=== PATIENT | male | born 1955 | race Caucasian/White ===

== ENCOUNTER 2017-08-31 13:19 | Inpatient (IN) | payer BC, OTHER ==
[~2017-08-31] VITALS: Ht 167.6 cm; Wt 92.5 kg
[2017-08-31] VITALS (27 sets, daily range): BP systolic 58–118; BP diastolic 46–79
[~2017-08-31 13:19] MED LIST: AMLODIPINE BESYL5 MG PO; ASPIRIN ENTERI325 MG PO; ATORVASTATIN CA10 MG PO; BYSTOLIC10 MG PO; DIGOXIN125 MCG PO; GLIMEPIRIDE2 MG PO; LISINOPRIL10 MG PO; METFORMIN HCL500 MG PO; METOPROLOL SUCC50 MG PO; NEXIUM40 MG; XARELTO20 MG PO; ZETIA10 MG PO; invokana PO
[2017-08-31] MEDS ORDERED: ATROPINE SULFATE 1 MG/ML VIAL IV ONE (13:30)
[2017-08-31] MEDS ORDERED: GLUCAGON FOR INJ 1 MG VIAL ONE ×2 (13:33→13:34)
[2017-08-31] MEDS ORDERED: ATROPINE SULFATE 0.1 MG/ML 10ML SYR ONE (13:36)
[2017-08-31 13:37] LABS: BASOPHILS % 0.4 % (0.0-1.0); EOSINOPHILS # (AUTO) 0.2 (0.0-0.4); EOSINOPHILS % 1.9 % (0.0-6.0); HEMATOCRIT 45.9 % (38.2-49.6); LYMPHOCYTES # (AUTO) 3.5 (1.0-3.2); LYMPHOCYTES % 43.4 % (18.0-39.1); MEAN CORPUSCULAR HGB CONC 34.9 g/dL (31-35); MEAN CORPUSCULAR VOLUME 97.5 fL (81-99); MONOCYTES # (AUTO) 0.6 (0.2-0.8); MONOCYTES % 6.8 % (4.4-11.3); NEUTROPHILS # (AUTO) 3.8 (2.1-6.9); NEUTROPHILS % 47.4 % (38.7-80.0); PLATELET COUNT 204 x10e3/uL (140-360); RED BLOOD COUNT 4.71 x10e6/uL (4.3-5.7); RED CELL DISTRIBUTION WIDTH 12.9 % (11.7-14.4)
[2017-08-31 13:46] LABS: INR 1.13; PROTHROMBIN TIME 13.6 seconds (11.9-14.5)
[2017-08-31] MEDS ORDERED: ONDANSETRON HCL INJ 2 MG/ML VIAL ONE (13:46)
[2017-08-31 13:47] LABS: PARTIAL THROMBOPLASTIN TIME 26.8 seconds (23.8-35.5)
[2017-08-31 13:57] LABS: ALANINE AMINOTRANSFERASE 18 IU/L (0-55); ALBUMIN 3.9 g/dL (3.5-5.0); ALBUMIN/GLOBULIN RATIO 1.3 (0.8-2.0); ALKALINE PHOSPHATASE 76 IU/L (40-150); ANION GAP 14.2 mmol/L (8-16); BLOOD UREA NITROGEN 14 mg/dL (7-26); BUN/CREATININE RATIO 17 (6-25); CALCIUM 9.2 mg/dL (8.4-10.2); CARBON DIOXIDE 23 mmol/L (22-29); CHLORIDE 112 mmol/L (98-107); CREATINE KINASE 58 IU/L (30-200); CREATININE, SERUM 0.83 mg/dL (0.72-1.25); EST GLOMERULAR FILTRATION RATE > 60 ML/MIN (60-); GLUCOSE 98 mg/dL (74-118); POTASSIUM 4.2 mmol/L (3.5-5.1); SODIUM 145 mmol/L (136-145)
[2017-08-31] MEDS ORDERED: GLUCAGON FOR INJ 1 MG VIAL IV ONE (14:00)
[2017-08-31] MEDS ORDERED: ONDANSETRON HCL INJ 2 MG/ML VIAL IV ONE (14:30)
--- NOTE | 2017-08-31 14:30 | Diagnostic Imaging Report ---
EXAMINATION: CHEST SINGLE (PORTABLE) INDICATION: Dizziness. Shortness of breath. COMPARISON: None FINDINGS: TUBES and LINES: None. Implantable loop recorder projected on the lower left thorax. LUNGS: Mild bilateral pulmonary venous congestion. There is no evidence of pneumonia or pulmonary edema. PLEURA: No pleural effusion or pneumothorax. HEART AND MEDIASTINUM: The cardiac silhouette is mildly enlarged. Median sternotomy wires. Mild considerations arch. BONES AND SOFT TISSUES: No acute osseous lesion. Soft tissues are unremarkable. UPPER ABDOMEN: No free air under the diaphragm. IMPRESSION: Cord megaly and mild bilateral pulmonary venous congestion Signed by: Dr. Eulalio Sanchez M.D. on 08/31/2017 2:26 PM
[2017-08-31] MEDS ORDERED: FAMOTIDINE 20 MG TAB PO SCH ×2 (15:30→21:00)
[2017-08-31] MEDS ORDERED: SODIUM CHLORIDE FLUSH 10 ML SYR INJ PRN (15:30)
[2017-08-31] MEDS ORDERED: ONDANSETRON HCL INJ 2 MG/ML VIAL IV PRN (15:30)
--- OUTSIDE RECORDS SUMMARY | 2017-08-31 16:17 | XMS REPORT ---
Author Author [facility] Address Unknown Phone Unavailable Care Team Providers Care [employer] Bi Consultant Name Role Phone RENE CHOPRA Unavailable Unavailable Problems This patient has no known problems. Allergies, Adverse Reactions, Alerts This patient has no known allergies or adverse reactions. Medications This patient has no known medications. Results Test Description Test Time Test Comments Text Results Atomic Results Result Comments CHEST SINGLE (PORTABLE) [facility] [address] [address] Patient Name: HEAVEN IVAN MR #: [id number] : 1955 Age/Sex: 62/M Req #: [id number] Adm Physician: Ordered by: RENE CHOPRA MD Report # : [id number] Location: ER Room/Bed: Procedure: 0311 -[id number] DX/CHEST SINGLE (PORTABLE) Exam Date: 08/31/17 Exam Time: 1400 REPORT STATUS: Signed EXAMINATION: CHEST SINGLE ( PORTABLE) INDICATION: Dizziness. Shortness of breath. COMPARISON: None FINDINGS: TUBES and LINES: None. Implantable loop recorder projected on the lower left thorax. LUNGS: Mild bilateral pulmonary venous congestion. There is no evidence of pneumonia or pulmonary edema. PLEURA: No pleural effusion or pneumothorax. HEART AND MEDIASTINUM: The cardiac silhouette is mildly enlarged. Median sternotomy wires. Mild considerations arch. BONES AND SOFT TISSUES: No acute osseous lesion. Soft tissues are unremarkable. UPPER ABDOMEN: No free air under the diaphragm. IMPRESSION: Cord megaly and mild bilateral pulmonary venous congestion Signed by: Dr. Eulalio Mckeon M.D. on 2017 2:26 PM Dictated By: RYAN MCKEON MD, MD 25 Transcribed By: RON on 08/31/17 142 COPY TO: RENE CHOPRA MD
[2017-08-31] MEDS: SODIUM CHLORIDE 0.9% 1000ML 1,000 ML IV SCH (20:18)
[2017-08-31] MEDS ORDERED: ACETAMINOPHEN 325 MG TAB PO PRN (21:15)
[2017-08-31] MEDS ORDERED: DEXTROSE 50% SYRINGE 50 ML IV PRN (21:15)
--- NOTE | 2017-08-31 21:19 | Consultation ---
DATE OF CONSULTATION: August 31, 2017 REFERRING PHYSICIAN: Dr. eWrner REASON FOR CONSULT: Bradycardia. HISTORY OF PRESENT ILLNESS: This is a 62-year-old gentleman with history of coronary artery disease status post coronary bypass surgery, history of near syncope, reason why he had a loop recorder implanted, he came into the ER after feeling weak and dizzy. He was found bradycardic with heart rate in the 30s with frequent PVCs, ventricular bigeminy, patient states he has been on metoprolol and he stopped it about 5 days ago, and the bradycardia still persists. Patient denies any syncope, but he feels dizzy, having near syncope. No chest pain at the moment. REVIEW OF SYSTEMS: CONSTITUTIONAL: Progressive tiredness and weakness over the last 1 month. CARDIOVASCULAR: As per HPI. RESPIRATORY: Negative. GASTROINTESTINAL: Negative. GENITOURINARY: Negative. MUSCULOSKELETAL: Negative. EYES: Negative. ENT: Negative. ALLERGY/IMMUNOLOGY: Negative. PSYCHIATRY: Negative. PAST MEDICAL HISTORY: Coronary artery disease, hypertension. SURGICAL HISTORY: Coronary bypass surgery. FAMILY HISTORY: No premature coronary artery disease. SOCIAL HISTORY: No smoking, alcohol, or illicit drugs. PHYSICAL EXAMINATION: VITAL SIGNS: Blood pressure 110/60, pulse 40, respiration 20, O2 sat is 98%. GENERAL: In no acute distress. HEENT: Moist mucous membranes. No lesions. NECK: No JVD. CARDIOVASCULAR: Regular rhythm. RESPIRATORY: Clear to auscultation. GASTROINTESTINAL: Abdomen is soft, nontender. MUSCULOSKELETAL: 2+ distal pulses. NEUROLOGICAL: No focal deficit. SKIN: No lesions. PSYCHIATRY: Normal thought process. EKG: Sinus bradycardia with frequent PVCs, ventricular bigeminy. IMPRESSION: 1. Sinus node dysfunction with symptomatic bradycardia, lightheadedness, near syncope, no reversible causes persist despite holding beta blockers for about 5 days. 2. Frequent premature ventricular contractions. 3. History of coronary artery disease, status post bypass surgery. RECOMMENDATIONS: Discussed with the patient. He has indication for a pacemaker. Procedure was explained in detail with benefits and risks. He voices understanding and wishes to proceed. Will plan for a dual chamber pacemaker, will be awaiting results from echocardiogram regarding ejection fraction. Thank you for letting us participate in [facility]. Job#: [id number] DR MACARIO
--- NOTE | 2017-08-31 22:15 | History and Physical ---
CHIEF COMPLAINT: Severe dizziness. HPI: This is a 62-year-old male with the past medical history of coronary artery disease, coronary artery bypass graft, hypertension, hyperlipidemia, diabetes mellitus 2. Patient was having dizziness on Friday night. Patient did good after that. The patient had another dizziness spell severe this morning. He checked heart rate at home, was 30 and blood pressure was low, came to the emergency room. No chest pain, no shortness of breath, no cough, no leg pain, no leg swelling, no diarrhea, no constipation, no back ache, no burning urination. Patient had dizziness subsided after in the ER, the heart rate is better, but still low. No leg pain, no leg swelling. No hematuria, no melena. ALLERGIES: ALLERGIC TO PENICILLIN. PAST MEDICAL HISTORY 1. Hypertension. 2. Diabetes mellitus 2. 3. Hyperlipidemia. 4. Coronary artery disease. 5. Atrial fibrillation, status post ablation. PAST SURGICAL HISTORY: History of coronary artery bypass graft and ablation for AFib. SOCIAL HISTORY: Patient , lives with the . HABITS: Denies smoking, denies alcohol use, denies illicit drug use. MEDICATIONS: List attached. REVIEW OF SYSTEMS GENERAL . Denies fatigue, focal weakness. HEENT: No diplopia, no blurring of vision. CARDIOPULMONARY: No chest pain, no shortness of breath, no cough. ALIMENTARY SYSTEM: No nausea, no vomiting, no diarrhea, constipation. GENITOURINARY: No dysuria, no hematuria. MUSCULOSKELETAL: no joint pains. CENTRAL NERVOUS SYSTEM: No focal weakness, but has some dizziness. No seizures. PHYSICAL EXAMINATION GENERAL: A 62-year-old male, who is alert, oriented times 3. No gross distress. VITALS: Temperature 97.7, pulse 42, respiration 18, blood pressure 111/72. HEENT: Head atraumatic, normocephalic. Pupils bilaterally equally reactive to light. Extraocular muscles intact. NECK: Supple. No JVD, no carotid bruit. LUNGS: Clear to auscultation and percussion bilaterally. No added sounds. HEART: S1, S2. Regular rate and rhythm. No S3, S4. No murmur. ABDOMEN: Soft, nontender. No guarding, no rigidity. EXTREMITIES: No pedal edema. Peripheral pulses +1. SUBSCRIPTION CREW LEADER: Grossly nonfocal. Chest x-ray mild cardiomegaly and venous congestion. PT/PTT normal. CMP, sugar and all chemistry normal. BNP 179.8. CBC, white count 8.05, hemoglobin 16, hematocrit 45, and platelet 204,000. ASSESSMENT 1. Symptomatic bradycardia with heart rate as low as 40 with severe dizziness. 2. Hypotension secondary to bradycardia. 3. Hypertension. 4. Coronary artery disease, status post coronary artery bypass graft. 5. Diabetes mellitus. 6. Hyperlipidemia. PLAN: IV fluids at 75 mL per hour. IV dopamine p.r.n. Permanent pacemaker in a.m. Echocardiogram. Lab in the morning, BMP. Cardiology consult with Dr. Werner. EP consult for pacemaker. Pepcid 20 p.o. b.i.d. Hold metformin now. Sliding scale blood sugar a.c. and nightly with regular insulin. Case discussed with patient and of condition and prognosis. Job#: [id number] CQ
[2017-09-01] VITALS (74 sets, daily range): BP systolic 48–184; BP diastolic 31–176
[2017-09-01] MEDS ORDERED: DEXTROSE 50% SYRINGE 50 ML IV PRN
[2017-09-01] MEDS: SODIUM CHLORIDE 0.9% 1000ML 1,000 ML IV SCH ×2 (01:31→21:31)
[2017-09-01 02:04] LABS: CREATINE KINASE MB 0.7 ng/mL (0-5.0)
--- NOTE | 2017-09-01 05:39 | Consultation ---
DATE OF CONSULTATION: September 01, 2017 CARDIOLOGY CONSULTATION REASON FOR CONSULTATION: Presyncope. HISTORY OF PRESENT ILLNESS: Mr. Guzmán is a pleasant 62-year-old man with history of CAD, status post aortocoronary bypass surgery, prior implantable loop recorder placement for bradycardia, presently asymptomatic, who over the course of the weekend in spite of having beta arianna held for various days has noted persistent heart rate in the 30s and has started to complain of episodes of lightheadedness and dizziness. This worsened with physical exertion. PVCs and ventricular bigeminy have been also observed. He denies any chest pain or shortness of breath. Hypotension has been observed for which IV fluids have been initiated. The patient is admitted to ICU for further management, including as needed atropine, as needed dopamine use. ALLERGIES: PENICILLIN. PAST MEDICAL HISTORY: Hypertension, diabetes mellitus, hyperlipidemia, coronary artery disease, status post bypass, and AFib, status post ablation. SOCIAL HISTORY: . No smoking, alcohol or drugs. FAMILY HISTORY: Noncontributory. REVIEW OF SYSTEMS: A 12-system reviewed negative, except for as noted above. PHYSICAL EXAMINATION VITALS: Temperature 98.3, heart rate 38, respiratory rate 18, blood pressure 113/67, and O2 sat 100% on 2 L per minute nasal cannula. GENERAL: In no acute distress. Alert. NECK: No JVD. CHEST: Clear to auscultation. CARDIOVASCULAR: Bradycardic. Regular rate and rhythm with frequent compensatory process. Normal S1 and S2. Sternotomy incision scar. ABDOMEN: Soft. EXTREMITIES: Trace edema. CARDIOVASCULAR MEDICATIONS 1. Atorvastatin 20 mg daily. 2. Aspirin 81 mg daily. 3. The patient is status post glucagon. 4. Dopamine initially ordered, and currently on hold. 5. Atropine initially ordered, and currently on hold. White blood cells 8, hemoglobin 16 and platelets 204,000. INR 1. Creatinine 0.8. Serial troponins negative. BNP is 179. Chest x-ray with cardiomegaly and mild bilateral pulmonary venous congestion. ASSESSMENT 1. Symptomatic bradycardia with rate in the 30s. 2. Coronary artery disease: Status post aortocoronary bypass. 3. Frequent premature ventricular contractions. 4. Sinus node dysfunction. 5. Hypertension. 6. Dyslipidemia. 7. Diabetes. RECOMMENDATIONS 1. Proceed with echocardiogram. 2. EP consulted for pacemaker placement. Depending on echo results, will decide on pacemaker versus ICD. 3. Keep on telemetry in the intensive care unit. 4. Avoid chronotropic negative medications. 5. Resume other cardiovascular medications with holding parameters. Job#: [id number] TASHI
[2017-09-01 06:00] LABS: BASOPHILS % 0.5 % (0.0-1.0); EOSINOPHILS # (AUTO) 0.2 (0.0-0.4); EOSINOPHILS % 2.6 % (0.0-6.0); HEMATOCRIT 41.8 % (38.2-49.6); HEMOGLOBIN 14.6 g/dL (14.0-18.0); LYMPHOCYTES # (AUTO) 4.3 (1.0-3.2); LYMPHOCYTES % 52.6 % (18.0-39.1); MEAN CORPUSCULAR HEMOGLOBIN 34.4 pg (28-32); MEAN CORPUSCULAR HGB CONC 34.9 g/dL (31-35); MEAN CORPUSCULAR VOLUME 98.4 fL (81-99); MONOCYTES # (AUTO) 0.7 (0.2-0.8); MONOCYTES % 7.9 % (4.4-11.3); NEUTROPHILS % 36.3 % (38.7-80.0); PLATELET COUNT 176 x10e3/uL (140-360); RED BLOOD COUNT 4.25 x10e6/uL (4.3-5.7); RED CELL DISTRIBUTION WIDTH 13.1 % (11.7-14.4)
[2017-09-01 06:24] LABS: ANION GAP 11.2 mmol/L (8-16); BLOOD UREA NITROGEN 15 mg/dL (7-26); BUN/CREATININE RATIO 20 (6-25); CALCIUM 8.8 mg/dL (8.4-10.2); CARBON DIOXIDE 22 mmol/L (22-29); CHLORIDE 113 mmol/L (98-107); CHOL/HDL RATIO 3.6 (3.9-4.7); CHOLESTEROL 105 MD/DL (0-199); CREATININE, SERUM 0.76 mg/dL (0.72-1.25); EST GLOMERULAR FILTRATION RATE > 60 ML/MIN (60-); GLUCOSE 76 mg/dL (74-118); HDL CHOLESTEROL 29 MG/DL (40-60); LDL CHOLESTEROL 61 MG/DL (60-130); POTASSIUM 4.2 mmol/L (3.5-5.1); SODIUM 142 mmol/L (136-145); TRIGLYCERIDES 77 MG/DL (0-149)
[2017-09-01] MEDS: INSULIN LISPRO 100 UNIT/1 ML 3ML VIAL SQ SCH ×4 (07:30→21:00)
[2017-09-01] MEDS: FAMOTIDINE 20 MG TAB PO SCH ×2 (07:30→16:30)
[2017-09-01] MEDS: ATORVASTATIN 10 MG TAB PO SCH (09:00)
[2017-09-01] MEDS: ASPIRIN 81 MG ENTERIC COATED PO SCH (09:00)
[2017-09-01] MEDS ORDERED: SODIUM CHLORIDE 0.9% 1000ML 1,000 ML ONE ×3 (15:50→16:05)
[2017-09-01] MEDS ORDERED: VANCOMYCIN 1GM/NS 250 ML 250 ML ONE (15:58)
[2017-09-01] MEDS ORDERED: LIDOCAINE HCL 2% LOCAL 20 ML VIAL ONE ×3 (16:02→16:30)
[2017-09-01] MEDS ORDERED: MIDAZOLAM HCL 2 MG/2 ML VIAL ONE ×2 (16:05→16:30)
[2017-09-01] MEDS ORDERED: FENTANYL CITRATE/PF 100MCG/2 ML INJ ONE (16:05)
[2017-09-01] MEDS ORDERED: BACITRACIN 50,000 UNIT VIAL ONE (16:05)
[2017-09-01] MEDS ORDERED: MORPHINE SULFATE 2 MG/ML SYR IV PRN (18:00)
[2017-09-01] MEDS: METOPROLOL TARTRATE 25 MG TAB PO SCH ×2 (18:00→23:20)
--- NOTE | 2017-09-01 18:43 | Diagnostic Imaging Report ---
PROCEDURE: CHEST SINGLE (PORTABLE) 1820 hrs. COMPARISON: Chest x-ray 08/31/17. INDICATIONS: POST PACEMAKER INSERTION FINDINGS: Pacemaker wires terminate in the right atrium and right ventricle without pneumothorax. Pacemaker battery pack is in the left chest wall. LUNGS: No consolidations or mass.Vascular markings are normal. PLEURA: No effusions. HEART \T\ MEDIASTINUM: Stable cardiomegaly. No vascular congestion. BONES \T\ SOFT TISSUES: No acute findings. CONCLUSION: Pacemaker as described above. Stable cardiomegaly. Dictated by: Dustin Amaral M.D. on 09/01/2017 at 18:43 Electronically approved by: Dustin Amaral M.D. on 09/01/2017 at 18:43
[2017-09-01] MEDS ORDERED: ZOLPIDEM TARTRATE 5 MG TAB PO PRN (22:30)
--- NOTE | 2017-09-01 22:44 | Operative Report ---
DATE OF PROCEDURE: September 01, 2017 PREPROCEDURE DIAGNOSES 1. Sinus node dysfunction, symptomatic bradycardia with near-syncope, frequent premature ventricular contractions, no reversible causes. 2. Loop recorder in place. POSTPROCEDURE DIAGNOSES 1. Sinus node dysfunction, symptomatic bradycardia with near-syncope, frequent premature ventricular contractions, no reversible causes. 2. Loop recorder in place. PROCEDURES PERFORMED 1. Dual-chamber pacemaker implant. 2. Removal of loop recorder. 3. Moderate sedation. MODERATE SEDATION: Monitored conscious sedation was provided under my direct supervision by a sedation-trained nurse, sedation approximate time 30 minutes, Versed and fentanyl. There were no complications. See sedation form for details. COMPLICATIONS: None. ESTIMATED BLOOD LOSS: 5 mL. DESCRIPTION OF PROCEDURE: After informed consent was obtained, patient was brought to the electrophysiology laboratory in a fasting, nonsedated state. Area over his chest was prepped and draped in the usual sterile fashion. Moderate sedation and prophylactic antibiotic were given. Lidocaine 1% was used as local anesthetic, and a 3-cm skin incision was made in the left supraclavicular area. Electrocautery, sharp, and blunt dissection were used to reach the muscular fascia, and a pocket was created for eventual implantation of the device. Vascular access was obtained times 2 in the left axillary vein using the modified Seldinger technique under fluoroscopic guidance. Two 6-Italian sheaths were placed. The ventricular lead advanced to the RV apex. R-wave 16, pacing 0.4 at 0.5, impedance 800. Atrial lead to the right atrial appendage, P-wave 5, pacing 1.4 at 0.5, impedance 819. The sheaths were removed from the body. The leads were secured to fascia using 0-silk. Pocket was irrigated with antibiotic solution using the pulse pathology teacher. Hemostasis was meticulous. Leads were connected to the device and the entire pacemaker system placed in the pocket. The incision was closed using Vicryl and Dermabond. Patient tolerated the procedure well. Procedure deemed complete. SUMMARY OF HARDWARE IMPLANTED 1. The new pacemaker is [employer], model #L331, [id number]. 2. The atrial lead is [employer], 1341, [id number]. 3. The ventricular lead is [employer], 3072, [id number]. IMPRESSION: Successful dual-chamber pacemaker implant. At the end of the case, the area over the loop recorder was prepped and draped in the usual sterile fashion. A 1-cm incision was made over the loop recorder and the loop recorder was removed from the body without any issues. Skin was closed with Vicryl and Dermabond. There were no complications. Successful removal of a loop recorder. PLAN 1. Routine postop monitoring in telemetry bed. 2. Chest x-ray. 3. Followup in 2 weeks. Job#: [id number] CQ
[2017-09-02] VITALS (15 sets, daily range): BP systolic 131–158; BP diastolic 71–109
[2017-09-02 06:00] LABS: BASOPHILS % 0.4 % (0.0-1.0); EOSINOPHILS # (AUTO) 0.2 (0.0-0.4); EOSINOPHILS % 2.9 % (0.0-6.0); HEMOGLOBIN 15.2 g/dL (14.0-18.0); LYMPHOCYTES # (AUTO) 3.2 (1.0-3.2); MEAN CORPUSCULAR HEMOGLOBIN 33.9 pg (28-32); MEAN CORPUSCULAR HGB CONC 34.5 g/dL (31-35); MEAN CORPUSCULAR VOLUME 98.2 fL (81-99); MONOCYTES # (AUTO) 0.7 (0.2-0.8); MONOCYTES % 8.8 % (4.4-11.3); NEUTROPHILS % 48.8 % (38.7-80.0); PLATELET COUNT 178 x10e3/uL (140-360); RED BLOOD COUNT 4.48 x10e6/uL (4.3-5.7); RED CELL DISTRIBUTION WIDTH 12.6 % (11.7-14.4)
[2017-09-02 06:26] LABS: ANION GAP 12.2 mmol/L (8-16); BLOOD UREA NITROGEN 14 mg/dL (7-26); BUN/CREATININE RATIO 18 (6-25); CALCIUM 8.6 mg/dL (8.4-10.2); CARBON DIOXIDE 23 mmol/L (22-29); CHLORIDE 110 mmol/L (98-107); CREATININE, SERUM 0.76 mg/dL (0.72-1.25); EST GLOMERULAR FILTRATION RATE > 60 ML/MIN (60-); GLUCOSE 86 mg/dL (74-118); POTASSIUM 4.2 mmol/L (3.5-5.1); SODIUM 141 mmol/L (136-145)
[2017-09-02] MEDS: METOPROLOL TARTRATE 25 MG TAB PO SCH (06:50)
[2017-09-02] MEDS: INSULIN LISPRO 100 UNIT/1 ML 3ML VIAL SQ SCH (07:30)
[2017-09-02] MEDS: FAMOTIDINE 20 MG TAB PO SCH (07:30)
[2017-09-02] MEDS: ATORVASTATIN 10 MG TAB PO SCH (09:31)
[2017-09-02] MEDS: ASPIRIN 81 MG ENTERIC COATED PO SCH (09:31)
--- NOTE | 2017-09-02 10:46 | Progress Note ---
DATE: September 02, 2017 CARDIOLOGY PROGRESS NOTE SUBJECTIVE: The patient denies chest pain or shortness of breath. He underwent pacemaker placement yesterday by Dr. Kauffman without complications. OBJECTIVE VITALS: Temperature 98.5 degrees, pulse 77, respiratory rate 19, blood pressure 145/87, and oxygen saturation 99% on room air. GENERAL: Awake, alert and in no acute distress. LUNGS: Clear to auscultation bilaterally. No wheezes or crackles. CARDIOVASCULAR: Normal rate. Regular rhythm. No murmur. Normal S1 and S2. ABDOMEN: Soft and nontender. EXTREMITIES: No edema. Left chest with clean dressing over pacemaker pocket. Loop recorder removal dressing is also clean. CARDIAC MEDICATIONS 1. Atorvastatin 20 mg p.o. daily. 2. Aspirin 81 mg q.a.m. 3. Metoprolol tartrate 25 mg p.o. q.6 h. LABS: WBC 8.18, hemoglobin 15.2, hematocrit 44, and platelets 178,000. Sodium 141, potassium 4.2, chloride 110, CO2 23, BUN 14, creatinine 0.76. Telemetry is A-paced. IMPRESSION 1. Symptomatic bradycardia: Status post permanent pacemaker placement by Dr. Kauffman on September 01, 2017. 2. Coronary artery disease: Status post coronary artery bypass graft. 3. Frequent premature ventricular contractions. 4. Hypertension. 5. Dyslipidemia. 6. Diabetes mellitus. RECOMMENDATIONS: Pacemaker has been placed. The patient was resumed on metoprolol given his frequent PVCs. He will be discharged on metoprolol succinate 50 mg p.o. b.i.d. This was explained to the patient. Continue current cardiac medications otherwise. He has an appointment to follow up with Dr. Howell in 1 week. He may be discharged home from a cardiac standpoint. Thank you for this consult. We will continue to follow. Job#: [id number] TASHI
== END 2017-09-02 10:21 | disposition home or self-care (01) | DRG 244 ==
LOC: ER 13:19 → ERHOLD 16:14 → ICU 16:47
PROVIDERS: ADMIT Internal Medicine; ATTEND Internal Medicine
PROC: 02H63JZ Insertion of Pacemaker Lead into Right Atrium, Percutaneous Approach (ICD-10-PCS; principal; 2017-09-01)
PROC: 0JH606Z Insertion of Pacemaker, Dual Chamber into Chest Subcutaneous Tissue and Fascia, Open Approach (ICD-10-PCS; 2017-09-01)
PROC: 02HK3JZ Insertion of Pacemaker Lead into Right Ventricle, Percutaneous Approach (ICD-10-PCS; 2017-09-01)
DX: I49.8 Other specified cardiac arrhythmias (principal); I10 Essential (primary) hypertension; I49.5 Sick sinus syndrome; E11.9 Type 2 diabetes mellitus without complications; R00.1 Bradycardia, unspecified; E78.5 Hyperlipidemia, unspecified; I49.3 Ventricular premature depolarization; Z95.1 Presence of aortocoronary bypass graft; I25.10 Atherosclerotic heart disease of native coronary artery without angina pectoris; I44.0 Atrioventricular block, first degree; Z88.0 Allergy status to penicillin
CPT/HCPCS: 36140; 36415; 71045; 77001; 80048; 80053; 80061; 80162; 82550; 82553; 82948; 83880; 84484; 85025; 85610; 85730; 93005; 93306; 99285; C1898; J0461; J1610; J2001; J2250; J2405; J3370; J7030

== ENCOUNTER → 2018-03-24 | Day surgery (SDC) | payer OTHER ==
[2018-03-23 14:48] LABS: BASOPHILS % 0.4 % (0.0-1.0); EOSINOPHILS # (AUTO) 0.2 (0.0-0.4); EOSINOPHILS % 3.2 % (0.0-6.0); HEMATOCRIT 45.4 % (38.2-49.6); HEMOGLOBIN 15.7 g/dL (14.0-18.0); LYMPHOCYTES % 43.5 % (18.0-39.1); MEAN CORPUSCULAR HEMOGLOBIN 34.1 pg (28-32); MEAN CORPUSCULAR HGB CONC 34.6 g/dL (31-35); MEAN CORPUSCULAR VOLUME 98.5 fL (81-99); MONOCYTES # (AUTO) 0.6 (0.2-0.8); MONOCYTES % 8.5 % (4.4-11.3); NEUTROPHILS # (AUTO) 3.1 (2.1-6.9); NEUTROPHILS % 44.3 % (38.7-80.0); PLATELET COUNT 207 x10e3/uL (140-360); RED BLOOD COUNT 4.61 x10e6/uL (4.3-5.7); RED CELL DISTRIBUTION WIDTH 12.8 % (11.7-14.4)
[2018-03-23 14:59] LABS: INR 0.91; PROTHROMBIN TIME 13.1 seconds (11.9-14.5)
[2018-03-23 15:09] LABS: ALANINE AMINOTRANSFERASE 25 IU/L (0-55); ALBUMIN 3.9 g/dL (3.5-5.0); ALBUMIN/GLOBULIN RATIO 1.3 (0.8-2.0); ALKALINE PHOSPHATASE 89 IU/L (40-150); ANION GAP 14.2 mmol/L (8-16); BLOOD UREA NITROGEN 15 mg/dL (7-26); BUN/CREATININE RATIO 19 (6-25); CALCIUM 8.6 mg/dL (8.4-10.2); CARBON DIOXIDE 23 mmol/L (22-29); CHLORIDE 109 mmol/L (98-107); CHOL/HDL RATIO 3.7 (3.9-4.7); CHOLESTEROL 116 MD/DL (0-199); CREATININE, SERUM 0.81 mg/dL (0.72-1.25); EST GLOMERULAR FILTRATION RATE > 60 ML/MIN (60-); GLUCOSE 104 mg/dL (74-118); HDL CHOLESTEROL 31 MG/DL (40-60); LDL CHOLESTEROL 46 MG/DL (60-130); POTASSIUM 4.2 mmol/L (3.5-5.1); SODIUM 142 mmol/L (136-145); TRIGLYCERIDES 195 MG/DL (0-149)
[2018-03-24] VITALS (7 sets, daily range): BP systolic 142–157; BP diastolic 63–97
[~2018-03-24] VITALS: Ht 170.2 cm; Wt 94.3 kg
[~2018-03-24] MED LIST changes: +ASPIR 8181 MG PO; +ASPIRIN325 MG PO; +ATORVASTATIN CA20 MG PO; +FENTANYL CITRATE/PF 100MCG/2 ML INJ ONE; +HEPARIN SOD/SOD CHLORIDE 2,000 ML ONE; +IOPAMIDOL 370 MG/ML 200 ML INFUS..BTL INJ ONE; +LIDOCAINE HCL 2% LOCAL 20 ML VIAL ONE; +MIDAZOLAM HCL 2 MG/2 ML VIAL ONE; +SODIUM CHLORIDE 0.9% 1000ML 1,000 ML ONE; +TAMSULOSIN HCL0.4 MG PO
--- NOTE | 2018-05-25 08:02 | Operative Report ---
DATE OF PROCEDURE: March 24, 2018 CARDIAC PROCUREMENT FORESTER PROCEDURE NOTE INDICATIONS: Coronary artery disease, abnormal stress test. PROCEDURES PERFORMED: 1. Left heart catheterization, selective coronary angiography. 2. Selective cannulation of 1 arterial and 3 venous bypass conduits. COMPLICATIONS: None. RECOMMENDATIONS: Medical therapy. Access obtained in the right femoral artery. A 6-Bengali sheath was placed. Diagnostic coronary angiogram revealed 90% left main. Left anterior descending and circumflex arteries were completely occluded. Right coronary artery was dominant with mid 50% stenosis. Left internal mammary artery bypass to left anterior descending artery was widely patent. Saphenous vein bypass graft to first diagonal was widely patent. Saphenous vein bypass graft to obtuse marginal branch is widely patent. Radial artery bypass to obtuse marginal branch is widely patent. No intervention was deemed necessary. Right groin repaired using Mynx closure device. Patient discharged home same day. Job#: [id number]
== END | disposition home or self-care (01) ==
LOC: CATH LAB 13:14
PROVIDERS: ATTEND Internal Medicine Interventional Cardiology
DX: I25.708 Atherosclerosis of coronary artery bypass graft(s), unspecified, with other forms of angina pectoris (principal); R94.39 Abnormal result of other cardiovascular function study; I11.0 Hypertensive heart disease with heart failure; I50.9 Heart failure, unspecified; G47.33 Obstructive sleep apnea (adult) (pediatric); E11.9 Type 2 diabetes mellitus without complications; N52.9 Male erectile dysfunction, unspecified; Z01.812 Encounter for preprocedural laboratory examination; Z79.82 Long term (current) use of aspirin; Z79.84 Long term (current) use of oral hypoglycemic drugs; Z68.32 Body mass index [BMI] 32.0-32.9, adult; Z95.1 Presence of aortocoronary bypass graft
CPT/HCPCS: 36415; 80053; 80061; 85025; 85610; 93455; J2001; J2250; J7030; Q9967

== ENCOUNTER 2018-06-13 10:04 | Emergency (ER) | payer OTHER ==
[~2018-06-13] VITALS: Ht 170.2 cm; Wt 93.9 kg
[~2018-06-13 10:04] MED LIST changes: -FENTANYL CITRATE/PF 100MCG/2 ML INJ ONE; -HEPARIN SOD/SOD CHLORIDE 2,000 ML ONE; -IOPAMIDOL 370 MG/ML 200 ML INFUS..BTL INJ ONE; -LIDOCAINE HCL 2% LOCAL 20 ML VIAL ONE; -MIDAZOLAM HCL 2 MG/2 ML VIAL ONE; -SODIUM CHLORIDE 0.9% 1000ML 1,000 ML ONE
[2018-06-13] MEDS ORDERED: SODIUM CHLORIDE 0.9% 1000ML 1,000 ML IV STA (10:07)
[2018-06-13] MEDS: ONDANSETRON HCL INJ 2 MG/ML VIAL IV ONE ×2 (10:13→10:28)
[2018-06-13] MEDS ORDERED: KETOROLAC TROMETHAMINE 30 MG/ML VIAL ONE (10:14)
[2018-06-13] MEDS ORDERED: ONDANSETRON HCL INJ 2 MG/ML VIAL ONE (10:14)
[2018-06-13] MEDS: HYDROMORPHONE 2MG/ML 2 MG/ML ML IV ONE ×2 (10:15→10:24)
[2018-06-13] MEDS ORDERED: KETOROLAC TROMETHAMINE 30 MG/ML VIAL IV ONE (10:30)
[2018-06-13 10:51] LABS: BASOPHILS # (AUTO) 0.1 (0.0-0.1); BASOPHILS % 0.6 % (0.0-1.0); EOSINOPHILS # (AUTO) 0.3 (0.0-0.4); HEMATOCRIT 48.9 % (38.2-49.6); HEMOGLOBIN 16.5 g/dL (14.0-18.0); LYMPHOCYTES # (AUTO) 4.1 (1.0-3.2); LYMPHOCYTES % 46.3 % (18.0-39.1); MEAN CORPUSCULAR HEMOGLOBIN 33.3 pg (28-32); MEAN CORPUSCULAR HGB CONC 33.7 g/dL (31-35); MEAN CORPUSCULAR VOLUME 98.8 fL (81-99); MONOCYTES # (AUTO) 0.6 (0.2-0.8); MONOCYTES % 7.3 % (4.4-11.3); NEUTROPHILS # (AUTO) 3.7 (2.1-6.9); NEUTROPHILS % 42.6 % (38.7-80.0); PLATELET COUNT 210 x10e3/uL (140-360); RED BLOOD COUNT 4.95 x10e6/uL (4.3-5.7); RED CELL DISTRIBUTION WIDTH 12.4 % (11.7-14.4)
[2018-06-13 10:53] LABS: CLARITY,URINE HAZY (CLEAR); COLOR,URINE YELLOW (YELLOW); LEUKOCYTE ESTERASE ,URINE NEGATIVE (NEGATIVE); NITRITE,URINE NEGATIVE (NEGATIVE); PROTEIN,URINE DIPSTICK 1+ (NEGATIVE)
[2018-06-13 10:54] LABS: BILIRUBIN,URINE NEGATIVE (NEGATIVE); KETONES,URINE NEGATIVE (NEGATIVE); URINE UROBILINOGEN 0.2 mg/dL (0.2 - 1)
[2018-06-13 10:57] LABS: WBC,URINE (MAN) 0-5 /HPF (0-5)
[2018-06-13 10:58] LABS: AMORPHOUS SEDIMENT,URINE FEW (FEW); BACTERIA,URINE FEW /HPF; CALCIUM OXALATE CRYSTALS,UR FEW (FEW); EPITHELIAL CELLS,URINE FEW /LPF; RBC,URINE 21-50 /HPF (0-5)
[2018-06-13 11:11] LABS: ALANINE AMINOTRANSFERASE 35 IU/L (0-55); ALBUMIN 4.4 g/dL (3.5-5.0); ALBUMIN/GLOBULIN RATIO 1.7 (0.8-2.0); ALKALINE PHOSPHATASE 98 IU/L (40-150); ANION GAP 15.1 mmol/L (8-16); BLOOD UREA NITROGEN 13 mg/dL (7-26); BUN/CREATININE RATIO 14 (6-25); CALCIUM 9.3 mg/dL (8.4-10.2); CARBON DIOXIDE 23 mmol/L (22-29); CHLORIDE 105 mmol/L (98-107); CREATININE, SERUM 0.95 mg/dL (0.72-1.25); EST GLOMERULAR FILTRATION RATE > 60 ML/MIN (60-); GLUCOSE 109 mg/dL (74-118); POTASSIUM 4.1 mmol/L (3.5-5.1); SODIUM 139 mmol/L (136-145)
--- NOTE | 2018-06-13 11:16 | Diagnostic Imaging Report ---
EXAM: CT Abdomen and Pelvis WITHOUT contrast INDICATION: ^STONE PROTOCOL ^Y COMPARISON: None. TECHNIQUE: Abdomen and pelvis were scanned utilizing a multidetector helical scanner from the lung base to the pubic symphysis without administration of IV contrast. Absence of intravenous contrast decreases sensitivity for detection of focal lesions and vascular pathology. Coronal and sagittal reformations were obtained. Routine protocol was performed. IV CONTRAST: None ORAL CONTRAST: Water COMPLICATIONS: None RADIATION DOSE: Total DLP: 797.83 mGy*cm Estimated effective dose: (DLP x 0.015 x size factor) mSv CTDIvol has been reviewed. It is below the limits set by the Radiation Protocol Committee (RPC). FINDINGS: LINES and TUBES: None. LOWER THORAX: Partially seen median sternotomy wires and distal leads of cardiac pacemaker. Coronary artery calcifications. Left base linear atelectasis/scarring. 4 mm left lower lobe nodule (series 3, image 5). HEPATOBILIARY: Unenhanced liver is unremarkable. No biliary ductal dilation. GALLBLADDER: No radio-opaque stones or sludge. No wall thickening. SPLEEN: No splenomegaly. PANCREAS: No focal masses or ductal dilatation. ADRENALS: No adrenal nodules KIDNEYS/URETERS: Mild left hydroureteronephrosis with moderate left perinephric and periureteral fat stranding, caused by a 3 mm left ureterovesical junction calculus. No renal stone. No right hydronephrosis. Limited for evaluation of renal parenchyma without intravenous contrast. GI TRACT: No abnormal distention, wall thickening, or evidence of bowel obstruction. Few scattered colonic diverticula without evidence of diverticulitis. Appendix is normal. PELVIC ORGANS/BLADDER: Prostate and seminal vesicle calcifications. Bladder is under distended, limiting evaluation. LYMPH NODES: No lymphadenopathy. VESSELS: There is mild atherosclerotic disease in the aorta and major arterial branches. PERITONEUM / RETROPERITONEUM: No free air or fluid. BONES: Unremarkable. SOFT TISSUES: Small fat-containing umbilical hernia. Left buttock calcified injection granuloma. IMPRESSION: 1. 3 mm obstructive left ureterovesical junction calculus with mild left hydroureteronephrosis. 2. 4 mm left lower lobe lung nodule. Without risk factors, no follow-up is necessary. With risk factors, follow-up with low-dose chest CT in one year is recommended. Signed by: Dr. River Barbour MD on 06/13/2018 11:13 AM
[2018-06-13] MEDS ORDERED: HYDROMORPHONE 2MG/ML 2 MG/ML ML IV ONE (11:30)
[2018-06-13 11:49] VITALS: BP 170/99
== END 2018-06-13 12:06 | disposition home or self-care (01) ==
LOC: ER 10:04
DX: N20.1 Calculus of ureter (principal); I10 Essential (primary) hypertension; E11.9 Type 2 diabetes mellitus without complications; I48.91 Unspecified atrial fibrillation; Z88.0 Allergy status to penicillin; Z95.1 Presence of aortocoronary bypass graft; Z95.810 Presence of automatic (implantable) cardiac defibrillator
CPT/HCPCS: 36415; 74176; 80053; 81001; 85025; 87086; 99284; J1170; J1885; J2405; J7030

== ENCOUNTER 2018-06-14 19:03 | Inpatient (IN) | payer OTHER ==
[~2018-06-14] VITALS: Ht 170.2 cm; Wt 99.0 kg
[2018-06-14] MEDS ORDERED: KETOROLAC TROMETHAMINE 30 MG/ML VIAL IV STA (20:34)
[2018-06-14] MEDS ORDERED: SODIUM CHLORIDE 0.9% 1000ML 1,000 ML IV SCH (20:45)
[2018-06-14 20:51] LABS: BASOPHILS % 0.1 % (0.0-1.0); HEMATOCRIT 44.7 % (38.2-49.6); HEMOGLOBIN 15.7 g/dL (14.0-18.0); LYMPHOCYTES # (AUTO) 0.9 (1.0-3.2); LYMPHOCYTES % 6.4 % (18.0-39.1); MEAN CORPUSCULAR HEMOGLOBIN 34.1 pg (28-32); MEAN CORPUSCULAR HGB CONC 35.1 g/dL (31-35); MONOCYTES # (AUTO) 0.6 (0.2-0.8); MONOCYTES % 4.3 % (4.4-11.3); NEUTROPHILS # (AUTO) 13.1 (2.1-6.9); NEUTROPHILS % 88.9 % (38.7-80.0); PLATELET COUNT 211 x10e3/uL (140-360); RED BLOOD COUNT 4.61 x10e6/uL (4.3-5.7); RED CELL DISTRIBUTION WIDTH 11.8 % (11.7-14.4)
[2018-06-14 21:06] LABS: ALBUMIN 4.1 g/dL (3.5-5.0); ALBUMIN/GLOBULIN RATIO 1.3 (0.8-2.0); ANION GAP 17.1 mmol/L (8-16); CALCIUM 9.2 mg/dL (8.4-10.2); CREATININE, SERUM 1.37 mg/dL (0.72-1.25); POTASSIUM 4.1 mmol/L (3.5-5.1)
[2018-06-14] MEDS ORDERED: FENTANYL CITRATE/PF 100MCG/2 ML INJ IV ONE (21:45)
[2018-06-14 22:04] LABS: CLARITY,URINE CLEAR (CLEAR); COLOR,URINE YELLOW (YELLOW); LEUKOCYTE ESTERASE ,URINE NEGATIVE (NEGATIVE); NITRITE,URINE NEGATIVE (NEGATIVE)
[2018-06-14 22:05] LABS: BACTERIA,URINE FEW /HPF; BILIRUBIN,URINE NEGATIVE (NEGATIVE); EPITHELIAL CELLS,URINE RARE /LPF; KETONES,URINE 2+ (NEGATIVE); MUCUS,URINE FEW (RARE); PROTEIN,URINE DIPSTICK TRACE (NEGATIVE); URINE UROBILINOGEN 0.2 mg/dL (0.2 - 1); WBC,URINE (MAN) 0-5 /HPF (0-5)
[2018-06-14] MEDS ORDERED: SODIUM CHLORIDE 0.9% 50ML 50 ML ONE (22:47)
[2018-06-14] MEDS ORDERED: IOPAMIDOL 370 MG/ML 200 ML INFUS..BTL INJ ONE (22:47)
[2018-06-14] MEDS ORDERED: CEFTRIAXONE SOD 1 GM/NS 50 ML 50 ML IV ONE (22:54)
[2018-06-14] MEDS: CEFTRIAXONE SOD 1 GM VIAL IV SCH (23:09)
--- NOTE | 2018-06-14 23:14 | Diagnostic Imaging Report ---
EXAM: CT ABDOMEN/PELVIS W DATE: 06/14/2018 8:34 PM INDICATION: Abdominal pain, diabetes COMPARISON: 06/13/2018 TECHNIQUE: The abdomen and pelvis were scanned using a multidetector helical scanner. Coronal and sagittal reformations were obtained. CT low dose techniques were utilized, as applicable. IV Contrast: 100 ml Isovue 300/370 FINDINGS: LOWER THORAX: Partially imaged pacing leads. Stable 4 mm subpleural left basilar nodule. Bibasilar atelectasis/scar. LIVER/BILIARY: No masses. No ductal dilatation. GALLBLADDER: Unremarkable SPLEEN: Unremarkable PANCREAS: Unremarkable ADRENALS: No nodules KIDNEYS: Delayed left nephrogram with mild hydroureteronephrosis.. GI TRACT: Small hiatal hernia. Moderate gastric distention. Otherwise no evidence of bowel obstruction. No evidence of appendicitis. Diverticulosis. VESSELS: Moderate atherosclerotic changes. PERITONEUM/RETROPERITONEUM: Moderate perirenal and retroperitoneal free fluid extending to the pelvis. LYMPH NODES: No lymphadenopathy REPRODUCTIVE ORGANS/BLADDER: Bladder partially decompressed with a Sofia. SOFT TISSUES: Small fat-containing left inguinal hernia. BONES: No suspicious bone lesions. IMPRESSION: 1. Stable mild left hydroureteronephrosis related to a 3 mm left UVJ calculus. New moderate associated retroperitoneal free fluid raising concern for calyceal rupture. Correlate with urinalysis to exclude superinfection. 2. Moderate gastric distention which may be seen in the setting of diabetic gastroparesis. Signed by: Dr Bree Rutledge MD on 06/14/2018 11:10 PM
[2018-06-15] VITALS (8 sets, daily range): BP systolic 110–154; BP diastolic 56–78
[2018-06-15] MEDS ORDERED: MORPHINE SULFATE 2 MG/ML SYR IV PRN
[2018-06-15] MEDS: SODIUM CHLORIDE 0.9% 1000ML 1,000 ML IV SCH ×3 (02:32→17:44)
[2018-06-15] MEDS: MORPHINE SULFATE INJ 4 MG/ML INJ IV PRN ×5 (02:33→21:35)
--- NOTE | 2018-06-15 07:00 | NUR ---
Handoff report rec'd and walking rounds performed with outgoing table games shift manager nurse. Pt AOx3, able to verbalize needs; denies any c/o at this time.
--- NOTE | 2018-06-15 08:05 | NUR ---
Dr. Ernst consulted; spoke with Dr. Ernst. Orders received.
[2018-06-15 09:08] LABS: BASOPHILS % 0.2 % (0.0-1.0); EOSINOPHILS # (AUTO) 0.1 (0.0-0.4); EOSINOPHILS % 1.1 % (0.0-6.0); HEMATOCRIT 38.9 % (38.2-49.6); HEMOGLOBIN 13.7 g/dL (14.0-18.0); LYMPHOCYTES # (AUTO) 3.4 (1.0-3.2); LYMPHOCYTES % 36.1 % (18.0-39.1); MEAN CORPUSCULAR HEMOGLOBIN 34.7 pg (28-32); MEAN CORPUSCULAR HGB CONC 35.2 g/dL (31-35); MEAN CORPUSCULAR VOLUME 98.5 fL (81-99); MONOCYTES # (AUTO) 1.2 (0.2-0.8); MONOCYTES % 12.3 % (4.4-11.3); NEUTROPHILS # (AUTO) 4.7 (2.1-6.9); NEUTROPHILS % 50.2 % (38.7-80.0); PLATELET COUNT 192 x10e3/uL (140-360); RED BLOOD COUNT 3.95 x10e6/uL (4.3-5.7)
[2018-06-15 10:16] LABS: ALANINE AMINOTRANSFERASE 18 IU/L (0-55); ALBUMIN 3.3 g/dL (3.5-5.0); ALBUMIN/GLOBULIN RATIO 1.3 (0.8-2.0); ALKALINE PHOSPHATASE 70 IU/L (40-150); ANION GAP 12.7 mmol/L (8-16); BLOOD UREA NITROGEN 26 mg/dL (7-26); BUN/CREATININE RATIO 30 (6-25); CALCIUM 8.4 mg/dL (8.4-10.2); CARBON DIOXIDE 22 mmol/L (22-29); CHLORIDE 108 mmol/L (98-107); CREATININE, SERUM 0.86 mg/dL (0.72-1.25); EST GLOMERULAR FILTRATION RATE > 60 ML/MIN (60-); GLUCOSE 83 mg/dL (74-118); POTASSIUM 3.7 mmol/L (3.5-5.1); SODIUM 139 mmol/L (136-145)
[2018-06-15] MEDS ORDERED: DEXTROSE 50% SYRINGE 50 ML IV PRN (12:00)
[2018-06-15] MEDS: ONDANSETRON HCL INJ 2 MG/ML VIAL IV PRN ×2 (12:05→17:45)
--- NOTE | 2018-06-15 13:13 | History and Physical ---
PRESENTING COMPLAINT: Intractable left flank pain with vomiting of coffee ground liquid and reduced urine output for one day. HISTORY OF PRESENT ILLNESS: A 63-year-old male was admitted from the ER. The patient came to the ER last night from home. He told us that he was seen at the ER day before yesterday for left flank pain, and he was found have a small left-sided kidney stone. The patient was sent home with instruction for intake of plenty of oral liquids. The patient was continuing having left flank pain along reduction in his urine output. He also vomited once. Vomitus contained coffee ground liquids, as per his statement. The patient was not taking any NSAIDs, as per his statement. He also denied any similar episodes in the past. The patient was not on any anticoagulation, as per his statement. He has history of CAD, status post CABG, status post permanent pacemaker. He denied any fever at home. He was discharged from this hospital in August after placement of a permanent pacemaker for arrhythmias, as per the patient's statement. REVIEW OF SYSTEMS CONSTITUTIONAL: No fever or chills or rigors. The patient is now lying in bed without any distress. He is feeling better than last night, as per his statement. HEENT: No nasal congestion or sore throat. No earache. CARDIOVASCULAR: No chest pain or shortness of breath, no palpitations. PULMONARY: No cough. No hemoptysis. GI: Left flank pain. Nausea and vomiting of coffee ground liquid one time last night. No episode of bloody stool or black stool. No diarrhea. : No hematuria. Mild dysuria and reduction in urine output yesterday with left flank pain, as per HPI. MUSCULOSKELETAL/SKIN/LYMPHATIC: No joint pain. No joint swelling. No skin rash. No swollen glands. NEUROLOGICAL: No loss of consciousness, seizures or headache. HISTORY OF PAST MEDICAL ILLNESS: Hypertension, diabetes mellitus type 2, on metformin. Hyperlipidemia. CAD status post CABG. PAF, status post ablation. Dysrhythmia status post permanent pacemaker. HISTORY OF PAST SURGERY: Permanent pacemaker placement in August [address] Eddie Ruiz, as per electronic medical record. CABG more than 10 years ago at [facility], as per the patient's statement. Ablation for paroxysmal atrial fibrillation. No history of EGD or colonoscopy, as per the patient's statement. ALLERGIES: PENICILLIN, EXACT REACTION NOT KNOWN. HOME MEDICATIONS: As per the medical reconciliation sheet. SOCIAL HISTORY: The patient lives at home with his . HABITS: Denies smoking, drinking or substance abuse history. FAMILY HISTORY: No positive family history of nephrolithiasis. PHYSICAL EXAMINATION VITAL SIGNS: Blood pressure 153/117, pulse 70, temperature 98.5, respirations 20, Spo2 99%. GENERAL: Alert, lying in bed without any acute distress now. HEENT: Pupils are equal and reacting. No pallor. No icterus. Oral mucosa is moist. NECK: No JVD. No carotid bruit. No lymphadenopathy. No thyromegaly. HEART: S1 and S2 regular. No murmur. LUNGS: Air entry equal on both sides. No crackles or rhonchi. ABDOMEN: Soft, nondistended. No epigastric tenderness. Mild tenderness over the left flank area. No palpable masses. Bowel sounds active. No guarding. EXTREMITIES: No edema, cyanosis or clubbing. NEUROLOGIC: Muscle strength equal on both sides. LABORATORY DATA: CBC: WBC 14.7, hemoglobin 15.7, hematocrit 44.7, came down to hemoglobin 13.7 and hematocrit 38.9 this morning. Platelet count 211,000. MCV 97, RDW 11, neutrophils 88, lymphocytes 6.4. Chemistry panel: Sodium 132, potassium 4.1, chloride 96, CO2 of 23, anion gap 13. BUN 16 and creatinine 1.37. Glucose 155. Total bilirubin 1.1, AST 23, ALT 25, alkaline phosphatase 96, total protein 7.3, albumin 4.1, globulin 3.2, lipase 8. Urinalysis: Protein trace, glucose negative, ketones 2+, nitrites negative, leukocytes negative, WBCs 0-5, RBCs 6-10. Urine cultures and blood cultures pending. RADIOLOGICAL DATA: CT of the abdomen and pelvis with low dose IV contrast, stable, mild left hydroureteronephrosis, 2-3 mm left calculus in the ureterovesical junction. New moderately associated retroperitoneal free fluid, concerning for calyceal rupture, moderate gastric distension, which may be seen in the setting of diabetic gastroparesis. EKG pending. Chest x-ray pending. ASSESSMENT AND PLAN: 1. Left flank pain due to obstructive uropathy with hydroureteronephrosis. Will continue the patient on IV fluids. Urology consultation is requested from ER with Dr. Ernst. Would follow his recommendations. 2. Vomiting of coffee ground liquid. The patient was not on NSAIDs. He said he was taking Tylenol. Please refer to his medication record. He was not on any anticoagulation. He was taking low-dose aspirin as per his medication record., exact etiology not clear. His hemoglobin has slightly dropped from presentation. Hemodilution versus GI bleeding. His CT of the abdomen also showed gastric distention without any obstruction. Will keep the patient on Protonix IV drip. Requested GI consult by Dr. Abreu. 3. Hypertension. Continue regular medication. 4. Coronary artery disease, status post coronary artery bypass graft, status post permanent pacemaker. Will keep the patient on telemetry. If needed, would request cardiology for clearance in case he needs any procedure. 5. Diabetes mellitus. The patient was on metformin at home. Continue the patient on sliding scale insulin. Discharge plan would depend upon the patient's hospital course and recommendations by the specialists, urologist and mill operator. Job#: [id number]
--- NOTE | 2018-06-15 15:05 | NUR ---
Dr. Ontiveros at bedside to see the patient.
--- NOTE | 2018-06-15 15:15 | NUR ---
Pt off unit at this time for 2 view CXR.
--- NOTE | 2018-06-15 15:42 | NUR ---
Pt back on the unit.
[2018-06-15] MEDS ORDERED: POLYETHYLENE GLYCOL 3350 17 GM PACK PO PRN (15:45)
--- NOTE | 2018-06-15 15:58 | Diagnostic Imaging Report ---
EXAMINATION: CHEST 2 VIEWS INDICATION: Cough. COMPARISON: 08/31/2017 FINDINGS: TUBES and LINES: None. Dual lead left-sided pacemaker. LUNGS: Lungs are well inflated. Lungs are clear. There is no evidence of pneumonia or pulmonary edema. PLEURA: No pleural effusion or pneumothorax. HEART AND MEDIASTINUM: The cardiac silhouette is mildly enlarged. Median sternotomy wires and mediastinal clips. BONES AND SOFT TISSUES: No acute osseous lesion. UPPER ABDOMEN: No free air under the diaphragm. IMPRESSION: Mild cardiomegaly without acute decompensation. Signed by: Dr. Eulalio Sanchez M.D. on 06/15/2018 3:54 PM
--- NOTE | 2018-06-15 16:04 | Consultation ---
DATE OF CONSULTATION: June 15, 2018 GASTROENTEROLOGY CONSULTATION REASON FOR CONSULTATION: Hematemesis. HISTORY OF PRESENT ILLNESS: Mr. Guzmán is a very pleasant 63-year-old man admitted with nephrolithiasis, complicated left pain, obstructive uropathy, and hydroureter nephrosis. He is pending evaluation by Dr. Ernst. He was not having any other GI issues aside from the pain from the kidney stone until yesterday at which time he had an episode of dark red emesis. He was having nausea and vomiting related to the severity of his kidney stone pain. He is not taking NSAIDs. However, he was taking a fair amount of Tylenol No. 3. He has not had any melena. In fact, has not had a bowel movement in 3-4 days. His hemoglobin has dropped with hydration, but he has had no further evidence of overt bleeding. He does have gastric distention on the abdomen, which could be acute related to the narcotics that he was taking for the pain. PAST MEDICAL HISTORY: Nephrolithiasis, coronary artery disease, pacemaker, diabetes, and dyslipidemia. MEDICATIONS: Reviewed. Please see [facility] medication reconciliation form. ALLERGIES: REVIEWED. PLEASE SEE [facility] MEDICATION RECONCILIATION FORM. SOCIAL HISTORY: No alcohol, tobacco or illicit substance. FAMILY HISTORY: Reviewed and negative. PHYSICAL EXAMINATION GENERAL: Pleasant, alert, oriented, and in no acute distress. HEENT: Pupils equal, round and reactive to light. NECK: Supple. LUNGS: Clear. CARDIOVASCULAR: S1 and S2. ABDOMEN: Soft, nontender and nondistended. Normal bowel sounds. He is tender in the left flank. No rebound. EXTREMITIES: No clubbing or cyanosis. PSYCH: Calm and cooperative. NEUROLOGIC: Nonfocal. HEM/ONC: No bruising or adenopathy. Electronic health records reviewed for laboratory and radiologic data, as well as history. REVIEW OF SYSTEMS: Reviewed times 12 and as above in HPI, otherwise unremarkable. ASSESSMENT 1. Hematemesis: Given this overall picture, I suspect he most likely had a Leida-Ivy tear. He will be on Protonix. Will give him Reglan to help clear the stomach. Monitor for any side effects of the Reglan. He currently does not have any abdominal pain, nausea, vomiting, or melena. 2. Possible constipation: Stools softeners will be recommended. 3. Nephrolithiasis: Per Dr. Ernst. Will go ahead and keep him on Protonix and Reglan. If there is no further bleeding and no further drop in hemoglobin, we may defer inpatient evaluation. Otherwise, will plan for esophagogastroduodenoscopy. He has my card. Will of course follow up. Thank you very much for asking me to see Mr. Guzmán. If you have any questions or concerns, please do not hesitate to contact me. Job#: [id number] TASHI
[2018-06-15] MEDS: INSULIN LISPRO 100 UNIT/1 ML 3ML VIAL SQ SCH ×2 (16:30→20:33)
--- NOTE | 2018-06-15 16:43 | Consultation ---
DATE OF CONSULTATION: June 15, 2018 UROLOGY CONSULTATION REASON FOR CONSULTATION: Renal colic and urinary retention. HISTORY OF PRESENT ILLNESS: Sudhakar Guzmán is a 63-year-old man who was evaluated by me for testicular concern that has since resolved. The patient was also being followed up for BPH and has been on Flomax. The patient had severe left-sided flank pain 2 days ago. He reported to the emergency room where he was found to have a 3-mm obstructing stone at the ureterovesical junction on the left-hand side and hydroureteronephrosis. He did not have any signs of infection, and he was sent home with stone passage trial. The patient yesterday had severe left-sided flank pains and was drinking much water and was unable to urinate. He reported to the emergency room where Sofia catheter was placed, and a large amount of undocumented and unmeasured urine was obtained upon Sofia catheterization. The patient's pain has been controlled with analgesics. The patient denies any gross hematuria. PAST MEDICAL HISTORY, PAST SURGICAL HISTORY, ALLERGIES, SOCIAL HISTORY AND FAMILY HISTORY: Please refer to my office chart. CURRENT MEDICATIONS: Please refer to the MAR. ALLERGIES: PENICILLIN. REVIEW OF SYSTEMS: As discussed above in the history of present illness and past medical history, otherwise negative for all other systems. PHYSICAL EXAMINATION GENERAL: A relatively healthy appearing 63-year-old man walking around the room in no apparent distress. VITAL SIGNS: He is currently afebrile. Vital signs currently stable. ABDOMEN: Soft, nondistended, nontender without costovertebral angle tenderness. Kidneys not palpable. No hepatosplenomegaly. No obvious evidence of hernia. GENITOURINARY: The testes descended bilaterally. Testes epididymis bilaterally palpably normal. The patient has a normal circumcised male phallus without any lesions. There is a Sofia catheter in place draining urine out. CT scan of the abdomen and pelvis revealed a 3 mm left UVJ stone with hydroureteronephrosis and possibly calyceal leak. Gastric distention was also noted. White blood cell count initially 14,790 and today it dropped down to 9340. Hemoglobin is 13.7. Platelets 192,000. The patient's sodium was low yesterday at 132 and today it is normalized at 139. The patient's creatinine was elevated at 1.37 and has since normalized at 0.86 following Sofia catheterization. Calcium is normal at 8.4. Urinalysis significant for microhematuria with 6-10 RBCs. ASSESSMENT 1. Left distal ureteral stone. 2. Left hydroureteronephrosis. 3. Urinary retention. 4. Benign prostatic hypertrophy. 5. Microhematuria. 6. Acute renal failure, improved. 7. Left renal colic that is managed with parenteral analgesics. 8. Leukocytosis, improved. 9. Mild anemia. 10. Hyponatremia that improved. PLAN: 1. Stone passage trial, instructed to strain the urine. 2. I recommend continuing the current IV antibiotics the patient is on. 3. Recommend awaiting the blood and urine cultures that are currently pending. 4. Will order KUB for the morning to determine whether we can see if the stone is passing. Should the patient fail to pass the stone, then he may require operative intervention. I discussed with the patient risks, alternatives and options involved with cystoscopy with retrograde pyelograms, left ureteroscopy with stone manipulation, insertion of stent. Thank you very much for involving me in the care of your patient. I will be happy to follow him along with you as well as an outpatient. Job#: [id number] cc:LLOYD STOCKTON MD
[2018-06-15] MEDS: METOCLOPRAMIDE HCL 10 MG TAB PO SCH ×2 (17:44→21:25)
[2018-06-15] MEDS: PANTOPRAZOLE 40 MG 10ML VIAL IV SCH (17:45)
[2018-06-15] MEDS: TAMSULOSIN HCL 0.4 MG CAP PO SCH (17:45)
[2018-06-15] MEDS: DOCUSATE SODIUM 100 MG CAP PO SCH (17:45)
--- NOTE | 2018-06-15 18:25 | NUR ---
Pt transferred to [facility] in stable condition with all personal belongings. Receiving nurse, Kelsey met in the room.
--- NOTE | 2018-06-15 18:36 | NUR ---
Pt received ambulating from Obs unit. Emotional support given. Pt oriented to staff and surroundings. Encouraged to press call huber if help needed. Will endorse to next shift
[2018-06-15] MEDS: CEFTRIAXONE SOD 1 GM VIAL IV SCH (22:07)
[2018-06-16] VITALS (8 sets, daily range): BP systolic 116–151; BP diastolic 58–90
[2018-06-16] MEDS: SODIUM CHLORIDE 0.9% 1000ML 1,000 ML IV SCH ×3 (02:40→19:57)
[2018-06-16] MEDS: MORPHINE SULFATE INJ 4 MG/ML INJ IV PRN ×6 (02:40→23:45)
[2018-06-16 06:03] LABS: BASOPHILS % 0.3 % (0.0-1.0); EOSINOPHILS # (AUTO) 0.3 (0.0-0.4); EOSINOPHILS % 3.5 % (0.0-6.0); HEMATOCRIT 40.1 % (38.2-49.6); HEMOGLOBIN 13.8 g/dL (14.0-18.0); LYMPHOCYTES # (AUTO) 4.4 (1.0-3.2); LYMPHOCYTES % 49.8 % (18.0-39.1); MEAN CORPUSCULAR HEMOGLOBIN 34.6 pg (28-32); MEAN CORPUSCULAR HGB CONC 34.4 g/dL (31-35); MEAN CORPUSCULAR VOLUME 100.5 fL (81-99); MONOCYTES # (AUTO) 0.7 (0.2-0.8); MONOCYTES % 7.9 % (4.4-11.3); NEUTROPHILS # (AUTO) 3.4 (2.1-6.9); NEUTROPHILS % 38.3 % (38.7-80.0); PLATELET COUNT 200 x10e3/uL (140-360); RED BLOOD COUNT 3.99 x10e6/uL (4.3-5.7); RED CELL DISTRIBUTION WIDTH 12.4 % (11.7-14.4)
[2018-06-16 06:19] LABS: INR 0.95; PROTHROMBIN TIME 13.5 seconds (11.9-14.5)
--- NOTE | 2018-06-16 06:24 | Diagnostic Imaging Report ---
EXAM: ABDOMEN-1VIEW (KUB), supine INDICATION: Follow-up stone, hydronephrosis COMPARISON: CT of the abdomen and pelvis without IV contrast June 14, 2018 FINDINGS: LINES/TUBES: None BOWEL PATTERN: No evidence for obstruction. SOFT TISSUES: The left ureterovesicular junction 3 mm stone seen on prior CT is not visible by x-ray. LUNG BASES: Not included BONES: No acute findings. IMPRESSION: The left ureterovesicular junction 3 mm stone seen on prior CT is not visible by x-ray. Signed by: Dr. Mallorie Narayan M.D. on 06/16/2018 6:20 AM
[2018-06-16 06:31] LABS: ALANINE AMINOTRANSFERASE 22 IU/L (0-55); ALBUMIN 3.7 g/dL (3.5-5.0); ALBUMIN/GLOBULIN RATIO 1.3 (0.8-2.0); ALKALINE PHOSPHATASE 72 IU/L (40-150); ANION GAP 14.8 mmol/L (8-16); BLOOD UREA NITROGEN 17 mg/dL (7-26); BUN/CREATININE RATIO 19 (6-25); CARBON DIOXIDE 21 mmol/L (22-29); CHLORIDE 109 mmol/L (98-107); CHOL/HDL RATIO 3.2 (3.9-4.7); CHOLESTEROL 99 MD/DL (0-199); CREATININE, SERUM 0.89 mg/dL (0.72-1.25); EST GLOMERULAR FILTRATION RATE > 60 ML/MIN (60-); GLUCOSE 90 mg/dL (74-118); HDL CHOLESTEROL 31 MG/DL (40-60); LDL CHOLESTEROL 52 MG/DL (60-130); POTASSIUM 3.8 mmol/L (3.5-5.1); SODIUM 141 mmol/L (136-145); TRIGLYCERIDES 79 MG/DL (0-149)
[2018-06-16 06:32] LABS: B-TYPE NATRIURETIC PEPTIDE2 31.9 pg/mL (0-100)
--- NOTE | 2018-06-16 07:24 | NUR ---
RECEIVED PATIENT RESTING IN BED. NO ACUTE DISTRESS NOTED. PATIENT MEDICATED FOR PAIN AROUND 0713. CALL LIGHT WITHIN REACH. BED IN THE LOWEST POSITION.
[2018-06-16] MEDS: INSULIN LISPRO 100 UNIT/1 ML 3ML VIAL SQ SCH ×4 (07:30→21:00)
[2018-06-16] MEDS: DOCUSATE SODIUM 100 MG CAP PO SCH ×2 (08:19→16:21)
[2018-06-16] MEDS: METOCLOPRAMIDE HCL 10 MG TAB PO SCH ×4 (08:19→21:00)
[2018-06-16] MEDS: PANTOPRAZOLE 40 MG 10ML VIAL IV SCH ×2 (08:19→16:21)
[2018-06-16] MEDS: METOPROLOL SUCCINATE 50 MG TAB XL PO SCH (08:20)
[2018-06-16] MEDS: TAMSULOSIN HCL 0.4 MG CAP PO SCH (08:20)
[2018-06-16] MEDS ORDERED: TAMSULOSIN HCL 0.4 MG CAP PO SCH (09:00)
[2018-06-16] MEDS: LISINOPRIL 20 MG TAB PO SCH (13:28)
--- NOTE | 2018-06-16 14:00 | NUR ---
INGRAM DC'D AT THIS TIME WITH TIP INTACT ORDERED BY MD. PATIENT IS DTV AT 2200.
--- NOTE | 2018-06-16 14:05 | NUR ---
PATIENT VOIDED 100CC OF CLEAR YELLOW URINE AT THIS TIME. URINE STRAINED.
--- NOTE | 2018-06-16 18:13 | NUR ---
PATIENT VOIDED 700CC MORE AFTER INGRAM CATHETER WAS DC'D.
[2018-06-16] MEDS ORDERED: CITRATE OF MAGNESIA 300ML BOTTLE PO ONE (18:15)
--- NOTE | 2018-06-16 19:16 | NUR ---
REPORT GIVEN TO ONCOMING NURSE, PATIENT IS RESTING IN BED. NO S/S OF DISTRESS NOTED. CALL LIGHT WITHIN REACH. BED IN THE LOWEST POSITION.
[2018-06-16] MEDS ORDERED: BISACODYL 5 MG TAB EC PO ONE (20:00)
--- NOTE | 2018-06-16 20:01 | NUR ---
RECEIVED PT IN BED AOX3 .PT C/O PAIN .FAMILY AT THE BEDSIDE .MEDICATED WITH MORPHINE FOR PAIN .CALL LIGHT WITH IN REACH .CONTINUE TO MONITOR
[2018-06-16] MEDS ORDERED: ATORVASTATIN 20 MG TAB PO SCH (21:00)
[2018-06-16] MEDS ORDERED: CEFTRIAXONE SOD 1 GM/NS 50 ML 50 ML IV ONE (22:58)
[2018-06-17] MEDS: CEFTRIAXONE SOD 1 GM VIAL IV SCH
[2018-06-17 00:10] VITALS: BP 157/89
[2018-06-17] MEDS: SODIUM CHLORIDE 0.9% 1000ML 1,000 ML IV SCH ×2 (00:31→07:49)
[2018-06-17 01:49] VITALS: BP 157/89
[2018-06-17 04:35] VITALS: BP 133/76
[2018-06-17] MEDS: MORPHINE SULFATE INJ 4 MG/ML INJ IV PRN ×2 (05:03→09:05)
[2018-06-17 05:40] LABS: BASOPHILS % 0.4 % (0.0-1.0); EOSINOPHILS # (AUTO) 0.4 (0.0-0.4); HEMATOCRIT 36.8 % (38.2-49.6); LYMPHOCYTES # (AUTO) 3.1 (1.0-3.2); LYMPHOCYTES % 42.6 % (18.0-39.1); MEAN CORPUSCULAR HEMOGLOBIN 34.5 pg (28-32); MEAN CORPUSCULAR HGB CONC 35.3 g/dL (31-35); MEAN CORPUSCULAR VOLUME 97.6 fL (81-99); MONOCYTES # (AUTO) 0.6 (0.2-0.8); MONOCYTES % 8.3 % (4.4-11.3); NEUTROPHILS # (AUTO) 3.1 (2.1-6.9); NEUTROPHILS % 43.4 % (38.7-80.0); PLATELET COUNT 197 x10e3/uL (140-360); RED BLOOD COUNT 3.77 x10e6/uL (4.3-5.7)
[2018-06-17] MEDS ORDERED: BISACODYL 10 MG SUPP PR ONE (06:00)
[2018-06-17 06:07] LABS: BLOOD UREA NITROGEN 9 mg/dL (7-26); BUN/CREATININE RATIO 11 (6-25); CARBON DIOXIDE 23 mmol/L (22-29); CHLORIDE 106 mmol/L (98-107); CREATININE, SERUM 0.79 mg/dL (0.72-1.25); EST GLOMERULAR FILTRATION RATE > 60 ML/MIN (60-); GLUCOSE 87 mg/dL (74-118); MAGNESIUM 2.1 MG/DL (1.3-2.1); SODIUM 139 mmol/L (136-145)
[2018-06-17 06:23] VITALS: BP 133/76
--- NOTE | 2018-06-17 07:06 | NUR ---
PT IS NPO FOR IVP.GIVEN DULCOLAX SUPPOSITORY C/O PAIN AND GIVEN ORDERED PAIN MEDICATION .CALL LIGHT WITH IN REACH .REPORT GIVEN TO THE ONCOMING NURSE
[2018-06-17] MEDS: INSULIN LISPRO 100 UNIT/1 ML 3ML VIAL SQ SCH ×2 (07:30→11:30)
[2018-06-17] MEDS ORDERED: IOPAMIDOL 300MG/ML 100 ML INFUS..BTL IV ONE (07:44)
--- NOTE | 2018-06-17 09:22 | Diagnostic Imaging Report ---
PROCEDURE:INTRAVENOUS PYELOGRAM (IVP) COMPARISON:[facility], CT, CT ABDOMEN/PELVIS W, 06/14/2018, 21:37. INDICATIONS:KIDNEY STONES LEFT KIDNEY/URETER TECHNIQUE: After obtaining a legal administrative secretary KUB, 100 cc of Isovue-300 were administered intravenously. Multiple frontal and bilateral oblique images of the abdomen and pelvis were obtained with and without compression. Post-void images were obtained. FINDING: Drafter Assistant KUB: Unremarkable with several pelvic calcification likely vascular and phleboliths. Kidneys: Renal positions, contours and sizes are normal. Mild left hydronephrosis with collimation of the ureter to the UVJ. Ureters: Normal caliber bilaterally without irregularity or filling defect. A mild left ureteral dilatation is noted. Bladder: Normal contour. Postvoid image shows a decrease in the degree of left renal pelvic and ureteral dilatation suggesting that the stone has passed into the bladder. CONCLUSION: 1. Mild left hydronephrosis and ureterectasis. 2. Post void suggests that the stone has passed into the bladder. Bonifacio Anderson D.O. Dictated by: Bonifacio Anderson D.O. on 06/17/2018 at 9:34 Electronically approved by: Bonifacio Anderson D.O. on 06/17/2018 at 9:34
[2018-06-17] MEDS: METOPROLOL SUCCINATE 50 MG TAB XL PO SCH (09:53)
[2018-06-17] MEDS: DOCUSATE SODIUM 100 MG CAP PO SCH (09:53)
[2018-06-17] MEDS: TAMSULOSIN HCL 0.4 MG CAP PO SCH (09:53)
[2018-06-17] MEDS: METOCLOPRAMIDE HCL 10 MG TAB PO SCH ×2 (09:53→11:30)
[2018-06-17] MEDS: LISINOPRIL 20 MG TAB PO SCH (09:53)
[2018-06-17] MEDS: PANTOPRAZOLE 40 MG 10ML VIAL IV SCH (09:53)
[2018-06-17 12:49] VITALS: BP 146/94
--- NOTE | 2018-06-17 15:39 | NUR ---
PT DISCHARGED HOME ,IV DCD WITHOUT REDNESS OR SWELLING.DENIES PAIN.INSTRUCTIONS GIVEN COPY ON CHART.AMBULATED TO AUTO
== END 2018-06-17 15:10 | disposition home or self-care (01) | DRG 693 ==
LOC: ER 19:03 → ERHOLD 06-15 00:52 → OBSVTOIN 06-15 00:52 → IMCU 06-15 02:02 → MED/SURG3 06-15 18:26
PROVIDERS: ADMIT Internal Medicine; ATTEND Internal Medicine
DX: N13.2 Hydronephrosis with renal and ureteral calculous obstruction (principal); K22.6 Gastro-esophageal laceration-hemorrhage syndrome; E87.1 Hypo-osmolality and hyponatremia; I25.10 Atherosclerotic heart disease of native coronary artery without angina pectoris; E11.9 Type 2 diabetes mellitus without complications; I10 Essential (primary) hypertension; N40.0 Benign prostatic hyperplasia without lower urinary tract symptoms; N17.9 Acute kidney failure, unspecified; D64.9 Anemia, unspecified; N40.1 Benign prostatic hyperplasia with lower urinary tract symptoms; R33.8 Other retention of urine; R31.29 Other microscopic hematuria; Z95.1 Presence of aortocoronary bypass graft
CPT/HCPCS: 36415; 51700; 71046; 74018; 74177; 74400; 80048; 80053; 80061; 81001; 82948; 83036; 83690; 83735; 83880; 84484; 85025; 85610; 87040; 87086; 93005; 96361; 99284; J0696; J1885; J2270; J2405; J7030; Q9967

== ENCOUNTER → 2018-06-20 | Day surgery (SDC) | payer OTHER ==
[~2018-06-20] MED LIST changes: +BELLADONNA/OPIUM 30 MG SUPP RC ONE; +DEXAMETHASONE SOD PHOS INJ 4 MG/ML VIAL ONE; +FENTANYL CITRATE/PF 100MCG/2 ML INJ ONE; +GENTAMICIN 80MG/NS 100 ML 200 ML IV ONE; +IOPAMIDOL 610MG/1ML 300 MG/ML VIAL IV ONE; +LIDOCAINE HCL 2% LOCAL INJ 5 ML SDV VIAL INJ ONE; +MIDAZOLAM HCL 2 MG/2 ML VIAL ONE; +ONDANSETRON HCL INJ 2MG/ML 2ML 2 MG/ML VIAL ONE; +PROPOFOL IV EMULSION 10 MG/ML 20 ML VIAL ONE; +SEVOFLURANE INHAL SOLN 250 ML PEN BTL ONE
[2018-06-20 16:15] VITALS: BP 111/78
--- NOTE | 2018-08-17 06:31 | Operative Report ---
DATE OF PROCEDURE: 06/20/2018 SURGEON: Moo Ernst MD PREOPERATIVE DIAGNOSES: 1. Left nephrolithiasis. 2. Renal colic. POSTOPERATIVE DIAGNOSES: 1. Left nephrolithiasis. 2. Renal colic. 3. Left distal ureteral stricture. OPERATION PERFORMED: 1. Cystourethroscopy with bilateral ureteral catheterization and retrograde ureteropyelography (separate procedure for the renal colic). 2. Interpretation of the retrograde ureteropyelography. 3. Supervision of fluoroscopy, no radiologist was present. 4. Left ureteroscopy with dilation of distal ureteral stricture (separate procedure for diagnosis of stricture). 5. Left ureteroscopy with stone fragmentation and extraction and insertion of stent (separate procedure for the ureteral stone). 6. Radiological services for supervision and interpretation of ureteroscopy. ANESTHESIA: General. COMPLICATIONS: None. CLINICAL SUMMARY: Sudhakar Guzmán is a 63-year-old man, who has a distal ureteral stone. He has failed to pass the stone and he is brought to the operating room for the above procedures. He is aware of the risks of bleeding, infection, and injury to adjacent structures, and elected to proceed. PROCEDURE IN DETAIL: Informed consent was verified. Sudhakar Guzmán was preoperatively identified, taken to the operating room, and placed on the cystoscopy table in the supine position. Anesthesia was uneventfully begun. The patient was then carefully and gently repositioned in the dorsal lithotomy position. All pressure points were padded. His genitalia was prepped and draped in the usual sterile fashion. A 22.5- Colombian cystoscope sheath with a visual obturator was placed. It was atraumatically inserted into the patient's urethra. It was guided unremarkably sphincteric region, through the prostate, where it was significant for BPH and into the patient's bladder. A panendoscopy revealed no suspicious mucosal lesion, no tumors, no stones, and no diverticula. Normally positioned and consecutive ureteral orifices were identified. There was erythema around the left ureteral orifice. A ureteral catheter was used to cannulate each ureter and retrograde ureteropyelography was performed. INTERPRETATION OF RETROGRADE URETEROPYELOGRAPHY: Contrast was instilled in a retrograde fashion bilaterally. The right was unremarkable. There were no tumor, no stones, and no diverticula. Unobstructed drainage was observed fluoroscopically. The left had exhibited a narrow distal ureter and filling defect in the distal ureter consistent with the stone. A guidewire was then placed into the left ureter and guided to the level of the patient's kidney. Semi-rigid ureteroscope was then inserted over the guidewire and it was attempted to be placed into the left ureter, but the left ureter was narrowed. We then utilized a coaxial dilator over the guidewire and inserted over the guidewire and we dilated the distal ureter with fluoroscopic guidance. Following this, a semi-rigid ureteroscope was then inserted over the guidewire and guided into the left ureter. We then utilized the ureteroscope to dilate the distal ureteral stricture. The ureteroscope was withdrawn and then, it was inserted along side of the guidewire into the left ureter where we identified the stone that was proximal to the ureteral stricture. It was obvious that the ureteral stricture prevented the stone from passing. We utilized a basket to grasp the stone and thus fragmented it into 2 smaller pieces. We extracted these pieces of stone. Then with cystoscope and fluoroscopic guidance, the left-sided indwelling ureteral stent was then placed, it was curled in the patient's kidneys as well as the patient's bladder. The retaining suture was left long and brought out to the urethral meatus. Following drainage of the bladder, we taped the string attached to the stent to the distal penile shaft. A Belladonna and Opium suppository was placed suppository was placed revealing a 30 gram prostate that was smooth and functional without any nodules. The patient was then uneventfully reversed from anesthesia and taken to the recovery room in stable condition. There were no complications of the procedure. The patient tolerated the procedure well. Estimated blood loss was minimal. Exclusive postoperative instructions were given. We will plan to return the patient to the office in several weeks to remove his stent with the utilization of the string we left in place. Moo Ernst MD OH/MODL /[id number] cc: Masha Borjas MD MTDD
== END | disposition home or self-care (01) ==
LOC: OR 08:10
PROVIDERS: ATTEND Urology
DX: N20.1 Calculus of ureter (principal); N20.0 Calculus of kidney; N13.30 Unspecified hydronephrosis; N13.5 Crossing vessel and stricture of ureter without hydronephrosis; N40.0 Benign prostatic hyperplasia without lower urinary tract symptoms; I10 Essential (primary) hypertension; I25.810 Atherosclerosis of coronary artery bypass graft(s) without angina pectoris; E11.9 Type 2 diabetes mellitus without complications; F17.210 Nicotine dependence, cigarettes, uncomplicated; Z88.0 Allergy status to penicillin; Z79.82 Long term (current) use of aspirin; Z79.84 Long term (current) use of oral hypoglycemic drugs; Z95.1 Presence of aortocoronary bypass graft; Z95.0 Presence of cardiac pacemaker
CPT/HCPCS: 36415; 52332; 52352; 74420; 82948; 88300; C2617; J1100; J1580; J2001; J2250; J2405; J2704; Q9967